=== PATIENT | female | born 1955 | race Caucasian/White ===

== ENCOUNTER 2021-09-22 11:01 | Outpatient (REF) | payer MEDICARE, MEDICAID, SELFPAY | END 2021-09-22 11:02 | disposition home or self-care (01) | LOC: HO.CT 11:01 | PROVIDERS: Visit Provider Internal Medicine | DX: Z13.89 Encounter for screening for other disorder (principal) ==

== ENCOUNTER 2021-09-29 12:55 | Outpatient (REF) | payer MEDICARE, MEDICAID, SELFPAY ==
--- NOTE | ~2021-09-29 | CT_ITS ---
EXAMINATION: CT ABDOMEN AND PELVIS WITHOUT CONTRAST CLINICAL INFORMATION: Abdominal pain COMPARISON: None TECHNIQUE: Multidetector volumetric imaging was performed from the superior aspect of the liver through the pubic symphysis. Sagittal and coronal reformatted images were obtained on the technologist's workstation. This CT examination was performed using dose optimization techniques as appropriate, variously including the following: *Automated exposure control *Adjustment of mA and/or kV according to patient size (this includes techniques or standardized protocols for targeted exams where dose is matched to indication/reason for exam; i.e. extremities or head) *Use of iterative reconstruction technique DLP: 517 mGy-cm FINDINGS: LUNG BASES: The visualized lung bases are unremarkable. LIVER, GALLBLADDER, AND BILIARY TREE: The liver is normal in size, shape, and attenuation. No focal hepatic lesion or biliary ductal dilatation is present. There are multiple gallstones in the gallbladder. There may be enlarged gallstone in the fundus of the gallbladder or a cystic duct. The gallbladder does not appear dilated. PANCREAS: Unremarkable. SPLEEN: Unremarkable. ADRENAL GLANDS: Unremarkable. KIDNEYS AND URETERS: There is moderate right hydronephrosis and ureteral dilatation from a 5 x 8 mm right proximal ureteral stone. BLADDER: Unremarkable. GASTROINTESTINAL TRACT: The small and large bowel are unremarkable. The appendix is unremarkable. ABDOMINAL WALL: No significant hernia is appreciated. LYMPH NODES: Normal. VASCULAR: Unremarkable. PELVIC VISCERA: Unremarkable. OSSEOUS STRUCTURES: There is curvature of the lumbar spine to the right and degenerative changes.. CT/CT abdomen pelvis wo con IMPRESSION: Moderate right hydronephrosis and ureteral dilatation from a 5 x 8 mm right proximal ureteral stone. Gallstones. Fleischner guidelines were followed. Findings will be communicated by the [facility] work flow enrober Pat Tao.
== END 2021-09-29 12:56 | disposition home or self-care (01) ==
LOC: HO.CT 12:55
PROVIDERS: Visit Provider Internal Medicine
DX: R10.9 Unspecified abdominal pain (principal)
CPT/HCPCS: 74176

== ENCOUNTER 2021-11-18 11:16 | Outpatient (REF) | payer MEDICARE, MEDICAID, SELFPAY ==
--- NOTE | ~2021-11-18 | CT_ITS ---
EXAMINATION: CT ABDOMEN AND PELVIS WITHOUT CONTRAST CLINICAL INFORMATION: Left flank pain with history of nephrolithiasis COMPARISON: 09/29/2021 TECHNIQUE: Multidetector volumetric imaging was performed from the superior aspect of the liver through the pubic symphysis. Sagittal and coronal reformatted images were obtained on the technologist's workstation. This CT examination was performed using dose optimization techniques as appropriate, variously including the following: *Automated exposure control *Adjustment of mA and/or kV according to patient size (this includes techniques or standardized protocols for targeted exams where dose is matched to indication/reason for exam; i.e. extremities or head) *Use of iterative reconstruction technique DLP: 519 mGy-cm FINDINGS: LUNG BASES: The visualized lung bases are unremarkable. No pleural or pericardial effusion. Minor lingular atelectasis. LIVER, GALLBLADDER, AND BILIARY TREE: The liver is normal in size, shape, and attenuation. No focal hepatic lesion or biliary ductal dilatation is present. Numerous gallbladder calculi are present. Pericholecystic fluid is seen. PANCREAS: Unremarkable. SPLEEN: Unremarkable. ADRENAL GLANDS: Unremarkable. KIDNEYS AND URETERS: The kidneys are normal in size, shape, and attenuation. No hydronephrosis or hydroureter. There is a 2 mm nonobstructing calculus seen, lower pole of the right kidney. There has been resolution of the previously noted right hydronephrosis. No perinephric stranding. BLADDER: Unremarkable. GASTROINTESTINAL TRACT: No dilated loops of large or small bowel are evident. No free air or free fluid. No pericolonic inflammatory change. The appendix appears unremarkable. ABDOMINAL WALL: No significant hernia is appreciated. LYMPH NODES: No lymphadenopathy appreciated. VASCULAR: There is mild aortoiliac calcified plaque present. No abdominal aortic aneurysm. PELVIC VISCERA: Unremarkable. OSSEOUS STRUCTURES: No suspicious destructive bony lesions identified. There is mild scoliosis at the thoracolumbar junction convex right. Multilevel degenerative disc disease is present. CT/CT abdomen pelvis wo con IMPRESSION: 1. Cholelithiasis without evidence of acute cholecystitis. 2. No evidence of obstructive uropathy. Nonobstructive 2 mm right renal lower pole calculus. Previously noted right hydronephrosis has resolved. The previously noted right ureteral calculus is not seen on today's study. Fleischner guidelines were followed.
== END 2021-11-18 11:17 | disposition home or self-care (01) ==
LOC: HO.CT 11:16
PROVIDERS: PCP Internal Medicine; Visit Provider Internal Medicine
DX: R10.9 Unspecified abdominal pain (principal)
CPT/HCPCS: 74176